=== PATIENT | female | born 1995 | race Caucasian/White ===

== ENCOUNTER 2018-01-08 15:00 | Outpatient (RCR) | payer BC ==
[~2018-01-08 15:00] MED LIST: ACHD5005 PO; BCP; CHOL100045 PO; CIPR500T4 PO; DEXL30CA2 PO; DOCU100T2 PO; DULO30CA48 PO; DULO60CA58 PO; HYDR-757 PO; HYOS-20 PO; IBUP-1773 PO; L.AC1CAP6 PO; MELO15TA39 PO; METR500T21 PO; MULT-35 PO; NORE1TAB56 PO; ONDA8TAB13 PO; OXYC-272 PO; PANT40TA2 PO; PANT40TA3 PO; POLY119P5 PO; SUCR1ORA5 PO; TRAM150C3 PO; TRAM50TA2 PO
== END 2018-04-08 | disposition home or self-care (01) ==
LOC: LAB 15:00
PROVIDERS: ATTEND Internal Medicine
DX: R79.0 Abnormal level of blood mineral (principal)
CPT/HCPCS: 36415